=== PATIENT | female | born 1945 | race Caucasian/White ===

== ENCOUNTER → 2016-10-12 | Outpatient (CLI) | payer MEDICARE, OTHER ==
--- NOTE | 2016-10-12 15:24 | CT ---
EXAM DESCRIPTION: Chest CT. CLINICAL HISTORY: Pulmonary nodule followup COMPARISON: January 20, 2016 TECHNIQUE: A noncontrast volumetric CT was acquired and displayed in multiplanar reconstructions. FINDINGS: Mediastinum: Visualized lymph nodes are within normal limits for CT size criteria. No acute aortic abnormality, pericardial effusion, or mediastinal mass. Upper Abdomen: Low density noted within the left lower pole of kidney likely a renal stone. Atherosclerotic disease of the abdominal aorta. Lungs: 2 ground-glass pulmonary nodules seen within the right lower lobe. One is noted on image 27 and the 2nd is noted on image 39. These have remained stable when compared to prior from January of 2016. No new findings within bilateral lungs. Bones: No suspicious bone lesion is seen. IMPRESSION: All findings are unchanged when compared January of 2015. There remain 2 ground-glass nodules seen within the right lower lobe. A final CT of chest in 1 year is suggested to document 2 year stability and a benign etiology of these nodules. Electronically signed by: Nino Summers MD 10/12/2016 15:22
== END ==
LOC: CT 14:41
PROVIDERS: ATTEND Family Medicine
DX: J98.4 Other disorders of lung (principal)

== ENCOUNTER → 2017-02-14 | Outpatient (CLI) | payer MEDICARE, OTHER | END | disposition home or self-care (01) | LOC: GMAB 10:33 | PROVIDERS: ATTEND Family Medicine | DX: I10 Essential (primary) hypertension (principal) ==

== ENCOUNTER → 2017-05-30 | Outpatient (CLI) | payer MEDICARE, OTHER ==
--- NOTE | 2017-05-30 17:00 | CT ---
EXAM DESCRIPTION: Abdomen/Pelvis w/wo Contrast CLINICAL HISTORY: GENERALIZED ABDOMINAL PAIN COMPARISON: January 10, 2016 TECHNIQUE: Pre and postcontrast CT images of the abdomen and pelvis are obtained. This exam was performed according to our departmental dose-optimization program, which includes automated exposure control, adjustment of the mA and/or kV according to patient size and/or use of iterative reconstruction technique . FINDINGS: The visualized lung bases show pulmonary nodules in the right lower lobe measuring 7 mm on image 1 and 7 mm on image 12 stable from previous exam. These are followed on CT of the chest dated October 12, 2016. The liver is enlarged with heterogeneous decreased attenuation consistent with fatty infiltration. Low-attenuation cyst in the dome of the right lobe of the liver x2 is seen. Enlarged esophageal varices at the gastroesophageal junction are seen. Spleen is enlarged measuring 13.9 x 5.2 cm. No enlargement of the main portal vein is seen measuring 12 to 13 mm. Pancreas, adrenal glands, and gallbladder are unremarkable. Moderate atherosclerotic disease is seen. Fluid attenuation cortical cysts are seen and appear stable. The largest in the lower pole left kidney measures 2.5 cm. The urinary bladder fills with contrast on delayed images. Uterus and ovaries are unremarkable. The appendix is not identified. No secondary signs of acute appendicitis are seen. No bowel obstruction is seen. Small fat-containing umbilical hernia seen. Mild scattered diverticuli of the colon are seen without associated inflammatory changes or fluid collections. Moderate to severe disc degenerative changes at the thoracolumbar junction are seen with multilevel facet arthropathy. Mild degenerative changes of the sacroiliac joints are seen. IMPRESSION: Hepatomegaly with diffuse fatty infiltration of the liver is seen. Mild splenomegaly. Enlarged vessels at the gastroesophageal junction are again seen in retrospect and could represent esophageal varices suggesting possible portal venous hypertension. The main portal vein is relatively normal in size. Colon diverticulosis without CT evidence of diverticulitis. Electronically signed by: Bucky Brasher MD 05/30/2017 4:58 PM CDT
== END | disposition home or self-care (01) ==
LOC: RAD 15:24
PROVIDERS: ATTEND Physician Assistant
DX: R10.84 Generalized abdominal pain (principal); R16.0 Hepatomegaly, not elsewhere classified; K76.0 Fatty (change of) liver, not elsewhere classified

== ENCOUNTER → 2018-04-07 | Outpatient (CLI) | payer MEDICARE, OTHER | LOC: GMAE 12:15 | PROVIDERS: ATTEND Family Medicine | DX: I10 Essential (primary) hypertension (principal) ==

== ENCOUNTER → 2018-08-25 | Outpatient (CLI) | payer MEDICARE, OTHER ==
--- NOTE | 2018-08-25 17:25 | MRI ---
EXAM DESCRIPTION: Cervical Spine: MRI. CLINICAL HISTORY: CERVICALGIA COMPARISON: MRI scan cervical spine 12/25/2012. TECHNIQUE: Multiplanar, high-field MRI, multiple sequences, non-contrast Cervical spine. FINDINGS: C2-3: Disc desiccation posterior midline disc bulge bilateral facet arthrosis. Canal is patent with mild bilateral neural foraminal narrowing. C3-4: Disc desiccation and trace anterolisthesis. Anterior disc bulge. Posterior disc bulge abutting the cord with ligament hypertrophy. Right facet arthrosis and uncinate spur resulting in severe right neural foraminal stenosis. Mild left neural foraminal stenosis as well with left facet arthrosis. C4-5: Disc desiccation and trace anterolisthesis. Mild to moderate left neural foraminal narrowing. Right uncinate spur and right paracentral disc bulge with right neural foraminal stenosis. Mild to moderate canal narrowing. Bilateral Facet arthrosis. C5-6: Disc desiccation anterior disc bulge with endplate ridging and mild disc space loss. Trace posterior bulge almost abutting the cord. Bilateral uncinate spurs and mild to moderate neural foraminal stenosis. Mild bilateral facet arthrosis. C6-7: Disc desiccation and disc space loss and anterior bulging which is chronic. Large posterior midline disc protrusion with possible calcified component impressing on the midline cord with mild canal stenosis. Slight progression since the prior study. Flavum ligament hypertrophy also. Mild bilateral facet arthrosis. Moderate bilateral neural foraminal narrowing. C7-T1: Disc desiccation posterior midline bulge with annular fissure and the posterior disc is partially uncovered. No canal stenosis. Mild bilateral foraminal narrowing. Facets are negative. T1-2: Disc desiccation. 1 anterolisthesis and posterior disc bulge abutting the cord. Mild bilateral foraminal narrowing. Small cyst abutting the lateral right facet joint. Hypertrophic changes in the left facet. Borderline bilateral neural foraminal stenosis. Large cystic structure almost 1 cm in diameter partially visualized on the lateral aspect of the left foramen. Partially seen on the prior study.. Spinal alignment decreased lordosis with dorsal cervical kyphosis.. No cord compression or cord edema. Atlantoaxial joint with minimal hypertrophy.. Base of the cerebellar tonsils is above the foramen magnum. Paravertebral soft tissues unremarkable.. Vertebral bodies are not compressed at any level. Normal marrow signal in the remaining vertebral bodies and the posterior elements. IMPRESSION: 1. Large posterior midline disc protrusion at C6-7 with possible calcification. Slight progression since the prior study. Mild canal stenosis. Moderate bilateral neural foraminal narrowing. 2. bilateral uncinate spurs at C5-6 with mild to moderate neural foraminal stenosis. This has progressed on the right since the prior study. 3. Right uncinate spur and right paracentral disc bulge at C4-5 with right neural foraminal stenosis. Moderate left neural foraminal and canal narrowing. Progressive since the prior study. 4. Cystic structure abutting the left lateral T1-T2 neural foramen possibly associated with the left T1 nerve root. Partially seen on the prior study. 5. Hypertrophic changes in the right C3-4 facet with right uncinate spur resulting in severe right foraminal stenosis. Correlate for right C4 radiculopathy. This is progressed since the prior study. Electronically signed by: Raimundo Martinez MD 08/25/2018 5:24 PM [facility]
== END ==
LOC: MRI 13:17
PROVIDERS: ATTEND Family Medicine
DX: M50.221 Other cervical disc displacement at C4-C5 level (principal); M50.223 Other cervical disc displacement at C6-C7 level

== ENCOUNTER 2018-09-14 18:17 | Emergency (ER) | payer MEDICARE, OTHER ==
[2018-09-14 18:31] VITALS: TEMP 99.5
[2018-09-14] MEDS ORDERED: IPRATROPIUM/ALBUTEROL 3 ML VIAL NEB ONE ×2 (18:40→19:52)
--- NOTE | 2018-09-14 19:15 | RAD ---
EXAM DESCRIPTION: Chest,2 Views CLINICAL HISTORY: 73 years Female, cough, sob COMPARISON: None. FINDINGS: No consolidation. No pneumothorax. No significant pleural effusion. Cardiac silhouette appears normal in size. Aortic atherosclerosis is present. Thoracic spine osteophytes are present. IMPRESSION: No acute findings. Electronically signed by: Edwar Doe MD 09/14/2018 7:14 PM [facility]
[2018-09-14] MEDS ORDERED: predniSONE 20 MG TAB PO ONE (19:24)
[2018-09-14] MEDS ORDERED: AMOXICILLIN & POT CLAVULANATE 875 MG TAB PO ONE (19:24)
[2018-09-14] MEDS ORDERED: CETIRIZINE HCL 10 MG TAB PO ONE (19:56)
[2018-09-14 20:20] VITALS: O2SAT 93
--- NOTE | 2018-09-14 20:56 | ED.PDOC ---
History of Present Illness - General Chief Complaint: Respiratory Problem Stated Complaint: shortness of breath Time Seen by Provider: 09/14/18 18:22 Source: patient Exam Limitations: no limitations - History of Present Illness Initial Comments: The patient is a 73-year-old female presenting to the emergency room secondary to a significantly persistent cough. She reports that it started about 2-1/2 weeks ago. She was started on azithromycin along with some cough medications about 4 days ago. She has not improved. She has significant laryngitis. She is coughing to the point that she is becoming dizzy. She sometimes feel short of breath when she is having coughing episodes. She was having at least a start of a panic attack by the time she arrived here today. There is no hypoxia. There is no wheezing. She does have upper airway rhonchi. Her voice is hoarse. She does feel significantly better after breathing treatment that allows her to cough up some sputum. She was already written for a Ventolin inhaler for use. Timing/Duration: unsure Severity: moderate Improving Factors: nothing Worsening Factors: nothing Associated Symptoms: cough, shortness of breath Allergies/Adverse Reactions: Allergies NO KNOWN ALLERGY Allergy (Verified 10/03/13 14:57) Home Medications: Ambulatory Orders Albuterol Inhaler [Ventolin Hfa Inhaler] 1 puff INH DAILY 09/14/18 Benzonatate Perles [Tessalon Perles] 200 mg PO TID PRN 09/14/18 Celecoxib 200 mg PO BID 09/14/18 Chlorpheniramine-Phenylephrine [Norel Ad] 1 tab PO Q4H PRN 09/14/18 Enalapril Maleate 20 mg PO BID 09/14/18 Gabapentin 600 mg PO BID 09/14/18 Golimumab [Simponi Aria] 50 mg IV WKLY 09/14/18 Levofloxacin [Levaquin] 250 mg PO DAILY #7 tablet 09/14/18 Methocarbamol 750 mg PO Q6H PRN 09/14/18 Sertraline HCl 100 mg PO DAILY 09/14/18 Zithromax Z-Corky 250 mg PO DAILY 09/14/18 Review of Systems - Review of Systems Constitutional: States: no symptoms reported EENTM: States: nose congestion, throat pain Respiratory: States: cough, short of breath Cardiology: States: no symptoms reported Gastrointestinal/Abdominal: States: no symptoms reported Genitourinary: States: no symptoms reported Musculoskeletal: States: no symptoms reported Skin: States: no symptoms reported Neurological: States: anxiety Endocrine: States: no symptoms reported All other Systems: No Change from Baseline Past Medical History (General) - Patient Medical History Hx Asthma: Yes Hx Hypertension: Yes Hx Diabetes: No - Vaccination History Hx Influenza Vaccination: Yes - 2017 Hx Pneumococcal Vaccination: Yes Family Medical History - Family History Mother Family History: No Known Physical Exam - Physical Exam General Appearance: Alert, Comfortable, No apparent distress Eye Exam: bilateral normal Ears, Nose, Throat: hearing grossly normal, nasal congestion Neck: full range of motion, supple Respiratory: no respiratory distress, no accessory muscle use, rhonchi Cardiovascular/Chest: normal peripheral pulses, regular rate, rhythm, no edema Peripheral Pulses: radial,right: 2+, radial,left: 2+, dorsalis pedis,right: 2+, dorsalis pedis,left: 2+ Gastrointestinal/Abdominal: non tender, soft Rectal Exam: deferred Back Exam: no CVA tenderness, no vertebral tenderness Extremity: normal range of motion, non-tender, normal inspection, no pedal edema , no calf tenderness, normal capillary refill 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, alert, normal mood/affect - the patient is very anxious upon arrival, oriented x 3 Skin Exam: normal color Comments: Vital Signs - 24 hr 09/14/18 09/14/18 09/14/18 18:20 18:57 19:13 Temperature 99.5 F Pulse Rate 96 H Pulse Rate [ 101 H 97 H left brachial] Respiratory 24 16 Rate Blood Pressure 140/51 146/66 [left brachial] O2 Sat by Pulse 92 L 94 L 95 Oximetry 09/14/18 20:15 Temperature Pulse Rate Pulse Rate [ 108 H left brachial] Respiratory 20 Rate Blood Pressure 140/77 [left brachial] O2 Sat by Pulse 93 L Oximetry Progress - Progress Progress: 09/14/18 20:58 the patient is a 73-year-old female presenting to the emergency room due to symptoms related to laryngitis and bronchitis. The patient has been on azithromycin for a period of time. We are going to change her over to Levaquin. Additionally we are going to add prednisone 20 mg daily for 3-5 days. she already has the prednisone at home. she can continue to use the Ventolin inhaler as needed. I do recommend that she obtain a humidifier at night to help thin secretions so that she does not have to cough so hard. I recommend plain liquid Robitussin as a cough suppressant possibly with honey and lemon added. Keep well hydrated. Keep follow-up with primary care doctor. Of note, the patient did receive a dose of Augmentin here before she remembered that she reportedly had a penicillin allergy. She has been watched for a couple of hours with no reaction. The patient will be switched over to Levaquin just in case. She does understand the ER warnings for any allergic reaction. 09/14/18 21:03 - Results/Orders Results/Orders: Laboratory Tests 09/14/18 09/14/18 09/14/18 18:26 18:26 18:27 WBC 5.9 RBC 4.44 Hgb 13.7 Hct 40.1 MCV 90.2 MCH 30.9 MCHC 34.3 RDW 14.0 Plt Count 184 MPV 6.9 L Absolute Neuts (auto) 3.50 Absolute Lymphs (auto) 1.40 Absolute Monos (auto) 0.90 H Absolute Eos (auto) 0.10 Absolute Basos (auto) 0.00 Neutrophils % 59.4 Lymphocytes % 23.6 Monocytes % 14.9 H Eosinophils % 1.6 Basophils % 0.5 D-Dimer, Quantitative 0.57 H* Sodium 137 Potassium 4.1 Chloride 99 L Carbon Dioxide 28 Anion Gap 14.1 BUN 14 Creatinine 0.66 BUN/Creatinine Ratio 21.2 H Random Glucose 94 Serum Osmolality 274.0 L Calcium 9.7 Total Bilirubin 0.6 AST 22 ALT 19 Alkaline Phosphatase 62 Creatine Kinase 161 H CK-MB (CK-2) 3.2 CK-MB (CK-2) % Not Reportable Troponin I < 0.02 B-Natriuretic Peptide 20.0 Serum Total Protein 7.4 Albumin 3.9 Globulin 3.5 Albumin/Globulin Ratio 1.1 rapid flu is negative. Chest x-ray shows no significant acute process. Departure - Departure Clinical Impression: Laryngitis, Bronchitis Disposition: Discharge to Home or Self Care Condition: Fair Departure Forms: ED Discharge - Pt. Copy, Patient Portal Self Enrollment Instructions: Laryngitis (DC), Acute Bronchitis Diet: regular diet Activity: increase activity as tolerated Referrals: JOSE SANTIAGO MD [Primary Care Provider] - 1-5 Days Prescriptions: Levofloxacin [Levaquin] 250 mg PO DAILY #7 tablet Home Medications: Ambulatory Orders Albuterol Inhaler [Ventolin Hfa Inhaler] 1 puff INH DAILY 09/14/18 Benzonatate Perles [Tessalon Perles] 200 mg PO TID PRN 09/14/18 Celecoxib 200 mg PO BID 09/14/18 Chlorpheniramine-Phenylephrine [Norel Ad] 1 tab PO Q4H PRN 09/14/18 Enalapril Maleate 20 mg PO BID 09/14/18 Gabapentin 600 mg PO BID 09/14/18 Golimumab [Simponi Aria] 50 mg IV WKLY 09/14/18 Levofloxacin [Levaquin] 250 mg PO DAILY #7 tablet 09/14/18 Methocarbamol 750 mg PO Q6H PRN 09/14/18 Sertraline HCl 100 mg PO DAILY 09/14/18 Zithromax Z-Corky 250 mg PO DAILY 09/14/18 Additional Instructions: the patient is a 73-year-old female presenting to the emergency room due to symptoms related to laryngitis and bronchitis. The patient has been on azithromycin for a period of time. We are going to change her over to Levaquin. Additionally we are going to add prednisone 20 mg daily for 3-5 days. she already has the prednisone at home. she can continue to use the Ventolin inhaler as needed. I do recommend that she obtain a humidifier at night to help thin secretions so that she does not have to cough so hard. I recommend plain liquid Robitussin as a cough suppressant possibly with honey and lemon added. Keep well hydrated. Keep follow-up with primary care doctor. ER warnings were given.
[2018-09-14 21:15] VITALS: BP 169/69
== END 2018-09-14 21:22 | disposition home or self-care (01) ==
LOC: ER 18:17
DX: J04.0 Acute laryngitis (principal); J45.909 Unspecified asthma, uncomplicated; R42 Dizziness and giddiness; I10 Essential (primary) hypertension; Z79.899 Other long term (current) drug therapy
CPT/HCPCS: 71046; 80053; 82550; 82553; 83880; 84484; 85025; 85379; 87502; 94640; J7512; J7620

== ENCOUNTER 2018-12-31 12:53 | Inpatient (IN) | payer MEDICARE, OTHER ==
[2018-12-31] MEDS ORDERED: fentaNYL CITRATE INJ 50 MCG/ML AMP IV ONE ×2 (13:16→16:59)
[2018-12-31] MEDS ORDERED: SODIUM CHLORIDE 0.9% (FLUSH) 10 ML SYG IV PRN ×2 (13:16→18:00)
[2018-12-31] MEDS ORDERED: ONDANSETRON INJ 4 MG/2 ML VIAL IV ONE (13:16)
--- NOTE | 2018-12-31 13:25 | ED.PDOC ---
History of Present Illness - General Chief Complaint: Problem Stated Complaint: Pt complains of L flank pain and na urination Time Seen by Provider: 12/31/18 13:12 Source: patient Exam Limitations: no limitations - History of Present Illness Initial Comments: PT PRESENTS WITH COMPLAINT OF PROGRESSIVELY WORSENING L FLANK AND LLQ ABD PAIN SINCE YESTERDAY ASSOCIATED WITH URINARY FREQUENCY AND NAUSEA. PT ALSO REPORTS CHILLS. Timing/Duration: getting worse Severity: moderate Improving Factors: nothing Worsening Factors: nothing Associated Symptoms: fever/chills, loss of appetite, nausea/vomiting Allergies/Adverse Reactions: Allergies Penicillins Adverse Reaction (Verified 12/31/18 13:58) Home Medications: Ambulatory Orders Celecoxib 200 mg PO BID 09/14/18 Enalapril Maleate 20 mg PO BID 09/14/18 Gabapentin 600 mg PO DAILY 09/14/18 Golimumab [Simponi Aria] 50 mg IV WKLY 09/14/18 Sertraline HCl 100 mg PO DAILY 09/14/18 Hydrochlorothiazide 12.5 mg PO DAILY 12/31/18 Tizanidine HCl [Tizanidine Hydrochloride] 2 mg PO DAILY 12/31/18 Review of Systems - Review of Systems Constitutional: States: chills. Denies: fever EENTM: Denies: nose congestion, throat pain Respiratory: Denies: cough, short of breath Cardiology: Denies: chest pain, palpitations Gastrointestinal/Abdominal: States: see HPI, abdominal pain, nausea. Denies: diarrhea, vomiting Genitourinary: States: frequency. Denies: dysuria, hematuria Musculoskeletal: Denies: joint pain, joint swelling Skin: Denies: dryness, lesions Neurological: Denies: headache, numbness Endocrine: States: no symptoms reported Hematologic/Lymphatic: States: no symptoms reported Past Medical History (General) - Patient Medical History Hx Stroke: No Hx Asthma: Yes Hx of COPD: No Hx Hypertension: Yes Hx Diabetes: No Hx Cancer: Yes - skin Surgical History: other - Vaccination History Hx Tetanus, Diphtheria Vaccination: No Hx Influenza Vaccination: Yes Hx Pneumococcal Vaccination: Yes Immunizations Up to Date: Yes - Social History Hx Tobacco Use: No Hx Alcohol Use: No Hx Substance Use: No Hx Substance Use Treatment: No Hx Depression: No - Female History Patient is a Female of Child Bearing Age (10 -59 yrs old): No Patient : No Family Medical History - Family History Mother Family History: No Known Living Status: Unknown Physical Exam - Physical Exam General Appearance: Alert, No apparent distress, Well Developed, Well Groomed, Well Hydrated Eye Exam: bilateral normal Ears, Nose, Throat: hearing grossly normal, normal ENT inspection Respiratory: lungs clear, normal breath sounds, no respiratory distress Cardiovascular/Chest: regular rate, rhythm, no murmur Gastrointestinal/Abdominal: soft, guarding, tenderness - LLQ, SUPRAPUBIC REGION Back Exam: CVA tenderness (L) Neurologic: alert, normal mood/affect, oriented x 3 Skin Exam: normal color, warm/dry Progress - Progress Progress: 12/31/18 15:50 PT RESTING COMFORTABLY, LABS AND DIAGNOSTICS DISCUSSED. WILL PLAN TO ADMIT FOR IV ABX. - Results/Orders Results/Orders: Laboratory Tests 12/31/18 12/31/18 12/31/18 13:19 13:23 13:23 WBC 13.6 H RBC 4.45 Hgb 13.9 Hct 40.5 MCV 90.9 MCH 31.2 H MCHC 34.3 RDW 14.0 Plt Count 207 MPV 7.3 L Absolute Neuts (auto) 8.90 H Absolute Lymphs (auto) 3.10 Absolute Monos (auto) 1.30 H Absolute Eos (auto) 0.20 Absolute Basos (auto) 0.10 Neutrophils % 65.6 Lymphocytes % 22.8 Monocytes % 9.8 H Eosinophils % 1.3 Basophils % 0.5 Sodium 138 Potassium 3.7 Chloride 103 Carbon Dioxide 23 Anion Gap 15.7 BUN 26 H Creatinine 0.57 L BUN/Creatinine Ratio 45.6 H Random Glucose 101 Serum Osmolality 280.6 Calcium 9.7 Total Bilirubin 0.8 Direct Bilirubin 0.1 Indirect Bilirubin 0.7 AST 17 ALT 14 Alkaline Phosphatase 68 Serum Total Protein 7.8 Albumin 4.1 Urine Color Yellow Urine Appearance Clear Urine pH 5.5 Ur Specific [place] 1.025 Urine Protein Negative Urine Glucose (UA) Negative Urine Ketones Negative Urine Blood Negative Urine Nitrite Negative Urine Bilirubin Negative Urine Urobilinogen 0.2 Ur Leukocyte Esterase Negative Urine RBC 0 Urine WBC 0 Ur Epithelial Cells 0 Urine Bacteria 0 Departure - Departure Clinical Impression: Acute diverticulitis Time of Disposition: 15:51 Disposition: Admit Patient Condition: Fair Departure Forms: ED Discharge - Pt. Copy, Patient Portal Self Enrollment Referrals: JOSE SANTIAGO MD [Primary Care Provider] - 1-2 Weeks Home Medications: Ambulatory Orders Celecoxib 200 mg PO BID 09/14/18 Enalapril Maleate 20 mg PO BID 09/14/18 Gabapentin 600 mg PO DAILY 09/14/18 Golimumab [Simponi Aria] 50 mg IV WKLY 09/14/18 Sertraline HCl 100 mg PO DAILY 09/14/18 Hydrochlorothiazide 12.5 mg PO DAILY 12/31/18 Tizanidine HCl [Tizanidine Hydrochloride] 2 mg PO DAILY 12/31/18 Decision To Admit - Decistion To Admit Decision to Admit Reason: Admit from ER Decision to Admit Date: 12/31/18 Decision to Admit Time: 15:50 - CASE DISCUSSED WITH DREW CHRIS NP WHO AGREES TO ADMIT
[2018-12-31] MEDS ORDERED: SODIUM CHLORIDE 0.9% 1000ML 1,000 ML IVS ONE (14:08)
--- NOTE | 2018-12-31 15:03 | CT ---
EXAM DESCRIPTION: Abdomen/Pelvis w/Contrast CLINICAL HISTORY: 73 years Female, LLQ ABD TENDERNESS COMPARISON: CT abdomen and pelvis dated 05/30/2017. TECHNIQUE: Contiguous 3 mm axial images were obtained from the lung bases to the level of the proximal femora after the administration of intravenous and oral contrast. Sagittal and coronal reconstructions were reviewed. FINDINGS: THORAX: A calcified granuloma is identified in the right lower lobe. The imaged lower thorax otherwise appears normal. LIVER: The liver demonstrates normal size and density with no intrahepatic biliary ductal dilatation or focal masses. 9 mm hypodense lesion is noted in hepatic segment 7. GALLBLADDER: Not well distended limiting detailed evaluation. PANCREAS: Appears normal with no cystic or solid lesions. SPLEEN: Normal ADRENAL GLANDS: Normal with no nodules or masses. KIDNEYS: Both kidneys enhance symmetrically with no hydronephrosis or nephrolithiasis or perinephric fluid collections. Few simple cysts are identified in the inferior pole of the left kidney. No focal masses are identified. The visualized ureters appear grossly unremarkable. STOMACH: Small hiatal hernia is identified. The stomach is not well-distended limiting detailed evaluation. SMALL BOWEL: The small bowel loops demonstrate variable degrees of distention with no abnormal dilatation or other signs to suggest bowel obstruction. LARGE BOWEL: Inflammatory stranding is identified surrounding the sigmoid portion, most likely consistent with acute hepatitis. Trace free fluid is noted in the pelvis. Mild constipation is identified. No free intraperitoneal air. RETROPERITONEUM: The abdominal aorta is nonaneurysmal with mild to moderate atherosclerosis. The inferior vena cava is normal in size and caliber. No abnormally enlarged retroperitoneal lymph nodes are identified. URINARY BLADDER:The urinary bladder is well-distended with no gross abnormality. The uterus and adnexa appear normal. ADDITIONAL FINDINGS: None. BONES: Mild degenerative changes are identified in the visualized bones.No evidence of osteophytic or osteoblastic lesions. IMPRESSION: 1. Acute diverticulitis of the sigmoid colon with no perforation or abscess formation. 2. Small hiatal hernia. This exam was performed according to our departmental dose-optimization program, which includes automated exposure control, adjustment of the mA and/or kV according to patient size and/or use of iterative reconstruction technique. Electronically signed by: Aicha Cristina MD 12/31/2018 3:00 PM CDT
[2018-12-31] MEDS ORDERED: metroNIDAZOLE IV PREMIX 500MG 500 MG in PREMIX BAG 1 BAG IVPB ONE (15:24)
[2018-12-31] MEDS ORDERED: levoFLOXacin 750MG IV 750 MG in PREMIX BAG 1 BAG IVPB ONE (15:25)
[2018-12-31] MEDS ORDERED: metroNIDAZOLE IV PREMIX 500MG 100 ML IVPB ONE ×2 (15:30→20:18)
--- NOTE | 2018-12-31 16:20 | HP ---
SUPERVISING PHYSICIAN: Nick Mg MD CHIEF COMPLAINT: Left sided abdominal pain. HISTORY OF PRESENT ILLNESS: This is a 73-year-old female patient who has had left sided flank pain as well as left sided abdominal pain since Saturday. It progressively worsened. She also had increased urinary frequency with nausea, but no vomiting or diarrhea. She has no reports of any fever, but she has had some chills. She does have a history of kidney stones as well as diverticulitis. In the Emergency Room, her vital signs were stable with a temperature of 98, heart rate 88, blood pressure 124/82, respiratory rate 16, O2 saturation 95% on room air. Her labs showed an elevated white count of 13,600 with hemoglobin 13.9 and hematocrit 40.5. Electrolytes were basically within normal limits. BUN 26, creatinine 0.57. Urine was unremarkable. CT of the abdomen and pelvis shows 1) Acute diverticulitis of the sigmoid colon with no perforation or abscess formation. 2) Small hiatal hernia. She was given Levaquin and Flagyl in the Emergency Room as well as some fentanyl for pain and Protonix. She was also given a small amount of IV fluids. I was called for hospital admission. PAST MEDICAL HISTORY: 1. Rheumatoid arthritis. 2. Hypertension. 3. Osteoarthritis. 4. Mild asthma. 5. Hyperlipidemia. 6. Nephrolithiasis. PAST SURGICAL HISTORY: 1. Removal of one ovary. 2. Right shoulder surgery. 3. Bilateral foot surgery. ALLERGIES: PENICILLIN, REMICADE. FAMILY HISTORY: Positive for congestive heart failure, myocardial infarction and breast cancer. SOCIAL HISTORY: She is . She works part-time at [employer]. She denies tobacco, ETOH or illicit drug use. REVIEW OF SYSTEMS: GENERAL: Positive for chills. Negative for fever or weight changes. HEENT: Negative for sinus symptoms, ear pain, vision changes or sore throat. RESPIRATORY: Negative for wheezing, coughing or shortness of breath. CARDIAC: Negative for chest pain, palpitations or tachycardia. GASTROINTESTINAL: As per history of present illness, but positive for left sided abdominal pain and nausea. Negative for diarrhea or vomiting. GENITOURINARY: Positive for polyuria. Negative for hematuria, dysuria. MUSCULOSKELETAL: Positive for joint pain related to her rheumatoid arthritis, but otherwise no complaints. SKIN: Negative for lesions or rashes. NEUROLOGIC: Negative for headache, dizziness or seizures. PHYSICAL EXAMINATION: VITAL SIGNS: Temperature 97.2. Heart rate 77. Blood pressure 148/79. Respiratory rate 18. O2 saturation 95% on room air. GENERAL: This is a 73-year-old female patient who is lying in her hospital bed. She is in no acute distress. HEENT: Normocephalic, atraumatic. Pupils are equal and reactive. Oropharynx is clear. NECK: Supple without mass. RESPIRATORY: Essentially clear to auscultation bilaterally. CHEST: There is equal rise and fall of the chest with inspiration and expiration. CARDIOVASCULAR: Regular rate and rhythm. GASTROINTESTINAL: Abdomen is soft, nondistended. She does have some moderate pain to the left upper and lower quadrant as well as some mild left flank pain. There is no rebound tenderness or guarding. EXTREMITIES: No cyanosis, clubbing or edema. NEUROLOGIC: Awake, alert and oriented times three. Cranial nerves II-XII are grossly intact. LABORATORY: Labs and films are as per history of present illness. IMPRESSION: 1. Diverticulitis of the sigmoid colon. 2. Left abdominal pain with nausea and leukocytosis of 13,600. 3. History of kidney stones with a negative urinalysis. 4. History of rheumatoid arthritis. 5. History of hypertension, stable on medications. PLAN: We will admit the patient to the hospital. I have continued her Levaquin and Flagyl as she received in the Emergency Room. I will speak with Dr. Dan, general surgeon, about the patient's plan of care. I will put her on bowel rest as well as some fluids and some pain medication. She will also be on a proton pump inhibitor for ulcer prophylaxis and Lovenox for DVT prophylaxis. Hopefully we can advance her diet to clear liquids tomorrow and restart her home medications. Hopefully she can be discharged in 2 to 3 days with close followup with her GI doctor. #[id number] [facility]
[2018-12-31] MEDS ORDERED: IV SET AND CAP CHANGE INJ INJ SCH (18:00)
[2018-12-31] MEDS ORDERED: ONDANSETRON INJ 4 MG/2 ML VIAL IV PRN (18:00)
[2018-12-31] MEDS: ENOXAPARIN SODIUM 40 MG/0.4 ML SYG SUBCU SCH (21:44)
[2018-12-31] MEDS: fentaNYL CITRATE INJ 50 MCG/ML AMP IV PRN (22:01)
[2018-12-31] MEDS: metroNIDAZOLE IV PREMIX 500MG 500 MG in PREMIX BAG 1 BAG IVPB SCH (23:09)
[2019-01-01] MEDS: PANTOPRAZOLE SODIUM IV 40 MG VIAL IV SCH (06:06)
--- NOTE | 2019-01-01 07:19 | RAD ---
EXAM: Two view(s) of the abdomen. INDICATION: Diverticulitis. COMPARISON: CT dated 12/31/2018. FINDINGS: Intraperitoneal free air: Negative. Bowel: No dilated loops of small bowel or air-fluid levels. Bones: Unremarkable. Other: None. IMPRESSION: 1. Nonspecific, nonobstructed bowel gas pattern. 2. The sigmoid diverticulitis is better appreciated on the prior CT scan. Electronically signed by: Rafa Knight MD 01/01/2019 7:16 AM CDT Workstation: [id number]
[2019-01-01] MEDS ORDERED: metroNIDAZOLE IV PREMIX 500MG 100 ML IVPB ONE ×3 (07:44→19:12)
[2019-01-01] MEDS: metroNIDAZOLE IV PREMIX 500MG 500 MG in PREMIX BAG 1 BAG IVPB SCH ×2 (08:07→15:36)
[2019-01-01] MEDS: fentaNYL CITRATE INJ 50 MCG/ML AMP IV PRN ×2 (10:10→15:36)
[2019-01-01] MEDS: MAGNESIUM HYDROXIDE 30 ML UD PO SCH ×2 (12:10→15:35)
--- NOTE | 2019-01-01 13:35 | PN ---
SUPERVISING PHYSICIAN: Nick Mg MD DATE: 01/01/19 SUBJECTIVE: The patient has complaints of hunger. She has had no nausea, vomiting, diarrhea or constipation. Since admission, her abdominal pain is still on the left side, but much improved. We discussed that she is somewhat constipated and we needed to do a clean-out and then I would advance her diet. OBJECTIVE: VITAL SIGNS: Temperature 98. Heart rate 74. Blood pressure 110/59. Respiratory rate 20. O2 saturation 96% on room air. RESPIRATORY: Essentially clear to auscultation bilaterally. CARDIAC: Regular rate and rhythm. GASTROINTESTINAL: Abdomen is soft, nondistended. She is tender to the left upper and left lower quadrant. There is no left CVA tenderness. Bowel sounds are positive. NEUROLOGIC: Awake, alert and oriented times three. LABORATORY: WBCs have normalized to 7.3 with hemoglobin 12.8, hematocrit 37.5. CMP is basically within normal limits. Abdominal x-ray shows nonspecific, nonobstructive bowel gas pattern and sigmoid diverticulitis is better appreciated on the CT exam. All other labs and films have been reviewed via the EMR. ASSESSMENT: 1. Diverticulitis of the sigmoid colon. 2. Left abdominal pain with nausea and leukocytosis of 13,600 on admission. 3. Constipation. 4. History of kidney stones with a negative urinalysis. 5. History of rheumatoid arthritis. 6. History of hypertension, stable on medications. PLAN: We will continue present supportive care. I have consulted Dr. Dan. I have advanced her diet to clear liquid. I have also ordered two doses of Milk of Magnesia. I restarted her home medications. We will continue to monitor the patient closely and follow as needed. [facility][id number] [facility]
[2019-01-01] MEDS ORDERED: SERTRALINE HCL 50 MG TAB ONE (13:59)
[2019-01-01] MEDS ORDERED: ENALAPRIL MALEATE 5 MG TAB ONE (13:59)
[2019-01-01] MEDS: ENALAPRIL MALEATE 5 MG TAB PO SCH ×2 (14:05→21:32)
[2019-01-01] MEDS: SERTRALINE HCL 50 MG TAB PO SCH (14:06)
--- NOTE | 2019-01-01 14:14 | CONS ---
DATE OF CONSULTATION: 01/01/19 HISTORY OF PRESENT ILLNESS: The patient is a 73-year-old female who was admitted yesterday through the Emergency Room. She had abdominal pain and flank pain since Saturday. It worsened and she presented to the Emergency Room. She also had nausea, but no vomiting or change in her bowel habits. She denied fever, but had had chills. She has a history of diverticulitis once before and had a post treatment colonoscopy which is said to have been unremarkable. This was probably within the last two years. She does have a history also of renal calculi. She was started on Levaquin and Flagyl and made NPO. PAST MEDICAL HISTORY: 1. Rheumatoid arthritis. 2. Hypertension. 3. Osteoarthritis. 4. Asthma. 5. Hyperlipidemia. PAST SURGICAL HISTORY: 1. Oophorectomy. 2. Right shoulder surgery. 3. Bilateral foot surgery. ALLERGIES: PENICILLIN AND REMICADE. FAMILY HISTORY: Positive for heart failure, breast cancer. SOCIAL HISTORY: She is . She works part-time at [employer]. She denies tobacco or alcohol use. REVIEW OF SYSTEMS: As noted, no history of sinus difficulties. She denies shortness of breath, cough or chest pain. She does complain of polyuria, but no hematuria or dysuria. PHYSICAL EXAMINATION: VITAL SIGNS: The patient is currently afebrile, normotensive. HEENT: Sclerae nonicteric. Mucous membranes moist. NECK: Without adenopathy. BACK: Without CVA tenderness. CHEST: Equal breath sounds bilaterally. HEART: Regular rate and rhythm. ABDOMEN: Soft. Minimally distended. There is tenderness on the left lower quadrant without mass or guarding. PELVIC/RECTAL: Deferred. EXTREMITIES: Without cyanosis, clubbing or edema. LABORATORY: White count 13,000 yesterday in the Emergency Room. It is 7,000 today. Differential has gone from 65 to 51 neutrophils. Hemoglobin from 13 to 12.8. Chemistries reveal creatinine 0.75, potassium 4.2. Liver functions within normal limits. CT scan revealed inflammatory process involving the sigmoid colon with no free fluid or free air identified. No abscess cavity identified. There was a large amount of stool in the whole colon. ASSESSMENT: 1. Acute diverticulitis, second episode. RECOMMENDATION: Begin the patient on a clear liquid diet and gentle catharsis from above. We will follow the patient with you. She can likely be changed early on to oral antibiotics, but will need likely an ongoing bowel regimen. #[id number] [facility]
[2019-01-01] MEDS ORDERED: levoFLOXacin 500MG IV 100 ML IVPB ONE (16:41)
[2019-01-01] MEDS: levoFLOXacin 500MG IV 500 MG in PREMIX BAG 1 BAG IVPB SCH (16:48)
[2019-01-01] MEDS: CELECOXIB 100 MG CAP PO SCH (21:32)
[2019-01-01] MEDS: ENOXAPARIN SODIUM 40 MG/0.4 ML SYG SUBCU SCH (21:32)
[2019-01-01] MEDS: tiZANidine 4 MG TAB PO SCH (21:33)
[2019-01-01] MEDS: GABAPENTIN 300 MG CAP PO SCH (21:36)
[2019-01-02] MEDS: metroNIDAZOLE IV PREMIX 500MG 500 MG in PREMIX BAG 1 BAG IVPB SCH ×3 (00:20→16:10)
[2019-01-02] MEDS: PANTOPRAZOLE SODIUM IV 40 MG VIAL IV SCH (06:11)
[2019-01-02] MEDS ORDERED: metroNIDAZOLE IV PREMIX 500MG 100 ML IVPB ONE ×3 (08:10→20:13)
[2019-01-02] MEDS: ENALAPRIL MALEATE 5 MG TAB PO SCH ×2 (08:43→21:08)
[2019-01-02] MEDS: CELECOXIB 100 MG CAP PO SCH ×2 (08:43→21:07)
[2019-01-02] MEDS: SERTRALINE HCL 50 MG TAB PO SCH (08:44)
[2019-01-02] MEDS: hydroCHLOROthiazide 12.5 MG CAP PO SCH (08:45)
[2019-01-02] MEDS ORDERED: MAGNESIUM HYDROXIDE 30 ML UD PO ONE (11:59)
[2019-01-02] MEDS: POLYETHYLENE GLYCOL 3350 17 GM PCKT PO SCH (12:30)
[2019-01-02] MEDS ORDERED: levoFLOXacin 500MG IV 100 ML IVPB ONE (18:31)
[2019-01-02] MEDS: levoFLOXacin 500MG IV 500 MG in PREMIX BAG 1 BAG IVPB SCH (18:47)
[2019-01-02] MEDS: ENOXAPARIN SODIUM 40 MG/0.4 ML SYG SUBCU SCH (21:07)
[2019-01-02] MEDS: GABAPENTIN 300 MG CAP PO SCH (21:08)
[2019-01-02] MEDS: tiZANidine 4 MG TAB PO SCH (21:08)
--- NOTE | 2019-01-02 21:09 | PN ---
DATE: 01/02/19 SUPERVISING PHYSICIAN: Jacques Armstrong M.D. SUBJECTIVE: The patient continues to have abdominal pain on the left side and down into the suprapubic area. She is actually tolerating advancement of her diet. She has been afebrile. No other complaints. OBJECTIVE: VITAL SIGNS: temperature 97.6, pulse 69, blood pressure 138/79, respirations 20, satting 94% on room air. CHEST: Clear to auscultation bilaterally. HEART: Regular rate and rhythm. ABDOMEN: Soft, tender to palpation on the left lower quadrant and across to just below the umbilicus. No rebound tenderness. No point tenderness. Bowel sounds are present. NEUROLOGIC: He is alert and oriented times three. LABORATORY: CBC remains within normal limits at 6,600. Hemoglobin and hematocrit are stable at 12.8 and 37.7 respectively with differential now showing to be within normal limits. Chemistries show normal electrolytes, showing to be stable. BUN and creatinine are stable at 16 and 0.79 respectively. Liver functions showing to be within normal limits. RADIOLOGY: No additional radiographic studies. ASSESSMENT: 1. Diverticulitis of the sigmoid colon. Patient showing good clinical response to treatment and starting to tolerate diet. 2. Constipation responding to MiraLAX and Milk of Magnesia. 3. History of kidney stones with a negative urinalysis. 4. History of rheumatoid arthritis. 5. History of hypertension, stable on medications. PLAN: I have advanced her diet to low residual diet. After discussing the case with Dr. Dan, we are going to give her a dose of Milk of Magnesia and start her on some MiraLAX. Should she tolerate both the diet and have a good bowel movement through the night, the plan would be to discharge her home on continued antibiotic coverage with Levaquin and Flagyl. Until then will continue to monitor and treat as needed. [facility][id number] [facility]
[2019-01-03] MEDS: metroNIDAZOLE IV PREMIX 500MG 500 MG in PREMIX BAG 1 BAG IVPB SCH ×2 (00:10→10:00)
[2019-01-03] MEDS: PANTOPRAZOLE SODIUM IV 40 MG VIAL IV SCH (06:06)
[2019-01-03 06:48] VITALS: O2SAT 95
[2019-01-03] MEDS ORDERED: metroNIDAZOLE IV PREMIX 500MG 100 ML IVPB ONE (09:14)
[2019-01-03] MEDS: CELECOXIB 100 MG CAP PO SCH (09:59)
[2019-01-03] MEDS: SERTRALINE HCL 50 MG TAB PO SCH (09:59)
[2019-01-03] MEDS: ENALAPRIL MALEATE 5 MG TAB PO SCH (10:00)
[2019-01-03] MEDS: hydroCHLOROthiazide 12.5 MG CAP PO SCH (10:00)
[2019-01-03] MEDS: POLYETHYLENE GLYCOL 3350 17 GM PCKT PO SCH (10:00)
[2019-01-03 10:16] VITALS: BP 118/68; TEMP 98.6
--- NOTE | 2019-01-19 09:04 | DS ---
SUPERVISING PHYSICIAN: Roe Mg MD ADMISSION DIAGNOSES: 1. Diverticulitis of the sigmoid colon. 2. Left abdominal pain with nausea and leukocytosis of 13,600. 3. History of kidney stones with a negative urinalysis. 4. History of rheumatoid arthritis. 5. History of hypertension, stable on medications. DISCHARGE DIAGNOSES: 1. Acute diverticulitis of the sigmoid colon. Patient showing good clinical response to treatment and tolerating diet. 2. Constipation responding to MiraLAX and Milk of Magnesia. 3. History of kidney stones with a negative urinalysis. 4. History of rheumatoid arthritis. 5. History of hypertension, stable on medications. REASON FOR HOSPITALIZATION: This is a 73-year-old female patient who has had left sided flank pain as well as left sided abdominal pain since Saturday. It progressively worsened. She also had increased urinary frequency with nausea, but no vomiting or diarrhea. She has no reports of any fever, but she has had some chills. She does have a history of kidney stones as well as diverticulitis. In the Emergency Room, her vital signs were stable with a temperature of 98, heart rate 88, blood pressure 124/82, respiratory rate 16, O2 saturation 95% on room air. Her labs showed an elevated white count of 13,600 with hemoglobin 13.9 and hematocrit 40.5. Electrolytes were basically within normal limits. BUN 26, creatinine 0.57. Urine was unremarkable. CT of the abdomen and pelvis shows 1) Acute diverticulitis of the sigmoid colon with no perforation or abscess formation. 2) Small hiatal hernia. She was given Levaquin and Flagyl in the Emergency Room as well as some fentanyl for pain and Protonix. She was also given a small amount of IV fluids. I was called for hospital admission.. CONSULTATION: Devin Dan MD HOSPITAL COURSE: Ms. Pelaez was admitted on 12/31/18 with colon diverticulitis and started on treatment with Levaquin and Flagyl. Dr. Dan saw the patient in consultation. She was on bowel rest, had been started on fluids and given management. She was slowly able to tolerate advancement of her diet and showing good bowel movements, no longer having any significant amount of pain and was showing no fever. She was felt to be clinically stable enough for discharge for outpatient management. PLAN: Ms. Pelaez was discharged on 01/03/19 with instructions to followup with Dr. Mg the week after discharge. Diet was instructed to be low residual diet. She was taking the medications as instructed and resume her home medications as directed. She was given instructions to return to the hospital should there be any worsening or concerning symptoms. DISCHARGE MEDICATIONS: 1. Levaquin 500 mg daily, #14. 2. Flagyl 500 mg every 8 hours, #42. DISPOSITION: Patient discharged to care of family. CONDITION ON DISCHARGE: Stable and improving. #[id number] [facility]
== END 2019-01-03 11:10 | disposition home or self-care (01) | DRG 392 ==
LOC: ER 12:53 → MS 16:16
PROVIDERS: ADMIT Nurse Practitioner Acute Care; ATTEND Nurse Practitioner Family
PROC: BW211ZZ Computerized Tomography (CT Scan) of Abdomen and Pelvis using Low Osmolar Contrast (ICD-10-PCS; principal; 2018-12-31)
DX: K57.32 Diverticulitis of large intestine without perforation or abscess without bleeding (principal); K59.00 Constipation, unspecified; M06.9 Rheumatoid arthritis, unspecified; I10 Essential (primary) hypertension; M19.90 Unspecified osteoarthritis, unspecified site; J45.909 Unspecified asthma, uncomplicated; E78.5 Hyperlipidemia, unspecified; K44.9 Diaphragmatic hernia without obstruction or gangrene; Z88.0 Allergy status to penicillin; Z88.3 Allergy status to other anti-infective agents; Z87.442 Personal history of urinary calculi; Z79.899 Other long term (current) drug therapy

== ENCOUNTER 2019-07-08 12:17 | Observation (INO) | payer MEDICARE, OTHER ==
--- NOTE | 2019-07-08 15:48 | HP ---
SUPERVISING PHYSICIAN: Roe Mg M.D. CHIEF COMPLAINT: Epigastric abdominal pain. HISTORY OF PRESENT ILLNESS: This is a 74 year-old female patient who has a history of rheumatoid arthritis. She felt like she was actually having a flare- up of her rheumatoid arthritis over the last few weeks and went to see her applied statistician yesterday, Dr. Bree Scott in [place]. She came home yesterday. She has been quite busy over the last few weeks and woke up this morning with left upper abdominal pain that radiated to her epigastric area. She was also nauseated but no diarrhea at that time. She did have an occasional dry heave as she had been NPO for some routine blood work at her primary care physician's office, Dr. Siva Mg. She got her blood drawn this morning at his office and she went back for followup to the lab. At that time she was feeling very nauseated and weak. She was also vomiting. Then she began to have some diarrhea. She also felt dizzy and light-headed. In Dr. Mg's office, her WBCs were 12,000. The remainder of her lab work was fairly unremarkable other than her BUN was elevated. She has a history of diverticulitis and was actually in the hospital in December of this year. Because of her weakness as well as her history of rheumatoid arthritis as well as her dehydration. Dr. Mg felt it would be prudent for the patient to be admitted to the hospital for some fluids as well as some antibiotic therapy and a further workup. One she was admitted to the hospital her vital signs showed temperature 98.4 with a heart rate of 84, blood pressure 116/72, respiratory rate 12, O2 sat 97% on room air. Blood cultures were drawn. Additional lab studies were done with amylase of 59 and lipase 30. TSH was 3.83. CT of the abdomen was also done and it showed colon diverticulosis without CT evidence of acute diverticulitis, stable simple renal cortical or peripelvic cysts bilaterally, probably cholelithiasis. Consider further evaluation with a right upper quadrant ultrasound. She was given fluids as well as started on Flagyl and Levaquin IV. She was placed in observation in the hospital. PAST MEDICAL HISTORY: 1. Rheumatoid arthritis. 2. Hypertension. 3. Osteoarthritis. 4. Mild asthma. 5. Nephrolithiasis. PAST SURGICAL HISTORY: 1. Removal of one ovary. 2. Right shoulder surgery. 3. Bilateral foot surgery. ALLERGIES: PENICILLIN, REMICADE. FAMILY HISTORY: Positive for congestive heart failure, myocardial infarction and breast cancer. SOCIAL HISTORY: She is . She works part-time at [employer]. She denies tobacco, ETOH or illicit drug use. REVIEW OF SYSTEMS: Negative for chills, fever or weight changes. HEENT: Negative for sinus symptoms, ear pain, vision changes or sore throat. RESPIRATORY: Negative for coughing, wheezing or shortness of breath. CARDIAC: Negative for chest pains, palpitations or tachycardia. GASTROINTESTINAL: As per History of Present Illness, although in the hospital she did say that the pain has radiated to her right upper quadrant. GENITOURINARY: Positive for polyuria. Negative for hematuria or dysuria. MUSCULOSKELETAL: Positive for joint pain associated with her rheumatoid arthritis, but otherwise no complaints. SKIN: Negative for lesions or rashes. NEUROLOGIC: Positive for dizziness, weakness and light-headedness. Negative for seizures or headaches. PHYSICAL EXAMINATION: VITAL SIGNS: Temperature 98.4, heart rate 84, blood pressure 116/72, respiratory rate 12, O2 sat 97%. GENERAL: This is a 74 year-old female patient lying in her hospital bed. She looks to be mildly ill. HEENT: Normocephalic and atraumatic. Pupils are equal and reactive. Oropharynx is clear. Oral mucous membranes are quite dry. NECK: Supple without mass. RESPIRATORY: Essentially clear to auscultation bilaterally. CHEST: There is equal rise and fall of the chest with inspiration and expiration. CARDIOVASCULAR: Regular rate and rhythm. GASTROINTESTINAL: Abdomen is soft, nondistended. She has some moderate pain to the right upper epigastric and left upper quadrant. There is no flank pain. There is no rebound tenderness or guarding. EXTREMITIES: No clubbing, cyanosis or edema. NEUROLOGIC: She is awake, alert and oriented times three. Cranial nerves II- XII are grossly intact. SKIN: Warm and dry although her skin turgor is somewhat poor. LABORATORY: As per the History of Present Illness. ASSESSMENT: 1. Epigastric abdominal pain that radiates somewhat to the right and left upper quadrants with nausea, vomiting and dehydration. She had mild leukocytosis. 2. Diverticulosis with a history of diverticulitis treated in hospital in December of 2018. 3. Concerns for cholelithiasis per CT scan. 4. Rheumatoid arthritis currently on medications. 5. Hypertension on medications, stable. PLAN: The patient has been placed in observation. She will be given bowel rest as well as fluids. I have ordered a complete abdominal sonogram tomorrow as per recommendations of the CT scan. I will recheck her labs in the morning. Her Flagyl and Levaquin will be continued. Her home medications will be restarted. Will order some antiemetics as well as a PPI for ulcer prophylaxis and Lovenox for DVT prophylaxis. If needed tomorrow, will consult one of our general surgeons for followup. Will continue to monitor closely and follow as needed. [facility][id number] [facility]
[2019-07-08] MEDS ORDERED: ONDANSETRON INJ 4 MG/2 ML VIAL IV PRN (15:54)
[2019-07-08] MEDS ORDERED: ACETAMINOPHEN SUPPOSITORY 650 MG PR PRN (15:54)
[2019-07-08] MEDS ORDERED: SODIUM CHLORIDE 0.9% (FLUSH) 10 ML SYG IV PRN (15:54)
[2019-07-08] MEDS ORDERED: SODIUM CHLORIDE 0.9% 1000ML 1,000 ML IVS ONE (15:57)
[2019-07-08] MEDS ORDERED: IV SET AND CAP CHANGE INJ INJ SCH (16:00)
[2019-07-08] MEDS ORDERED: levoFLOXacin 500MG IV 500 MG in PREMIX BAG 1 BAG IVPB SCH (16:30)
[2019-07-08] MEDS ORDERED: levoFLOXacin 500MG IV 100 ML IVPB ONE (16:31)
--- NOTE | 2019-07-08 16:37 | CT ---
EXAM DESCRIPTION: Abdoment/Pelvis w/o Contrast CLINICAL HISTORY: ?diverticulitis abdominal pain COMPARISON: December 31, 2018 TECHNIQUE: Noncontrast transaxial CT images of the abdomen and pelvis are obtained. This exam was performed according to our departmental dose-optimization program, which includes automated exposure control, adjustment of the mA and/or kV according to patient size and/or use of iterative reconstruction technique . FINDINGS: Visualized lung bases show no acute findings. Stable hepatic cyst. Noncontrast appearance of the liver, spleen, pancreas, adrenal glands are unremarkable. Focal mild hyperdensity in the gallbladder measuring maximum 4 mm. No gallbladder wall thickening. No biliary tract obstruction. Moderate atherosclerotic disease. Simple bilateral renal cortical and parapelvic cysts are stable. No nephrolithiasis, ureteral calcification, or ureteral obstruction. Urinary bladder is poorly distended and unremarkable. Uterus is surgically absent or hypoplastic. Ovaries are not identified. The appendix is not identified. Stomach is contracted. No mass lesion or inflammatory changes. No small bowel obstruction or bowel wall thickening. [id number] scattered diverticuli of the mostly descending to sigmoid colon are seen without associated inflammatory changes or fluid collections. No pathologically enlarged abdominal or retroperitoneal lymphadenopathy. Small fat-containing umbilical hernia. Small fat-containing left inguinal hernia. Moderate to severe spondylitic changes of the spine. IMPRESSION: Colon diverticulosis without CT evidence of acute diverticulitis. Stable simple renal cortical or parapelvic cysts bilaterally. Probable cholelithiasis. Consider further evaluation with right upper quadrant ultrasound if clinically indicated. Electronically signed by: Bucky Brasher MD 07/08/2019 4:35 PM CDT
[2019-07-08] MEDS ORDERED: metroNIDAZOLE IV PREMIX 500MG 100 ML IVPB ONE ×2 (17:47→19:04)
[2019-07-08] MEDS: metroNIDAZOLE IV PREMIX 500MG 500 MG in PREMIX BAG 1 BAG IVPB SCH (18:19)
[2019-07-08] MEDS ORDERED: KCL 20MEQ/D5 1/2NS 1,000 ML IVS PRN (18:52)
[2019-07-08] MEDS: fentaNYL CITRATE INJ 50 MCG/ML AMP IV PRN (19:08)
[2019-07-08] MEDS ORDERED: ENOXAPARIN SODIUM 40 MG/0.4 ML SYG SUBCU SCH (21:00)
[2019-07-08] MEDS: SODIUM CHLORIDE 0.9% (FLUSH) 10 ML SYG IV SCH (21:07)
[2019-07-09] MEDS: metroNIDAZOLE IV PREMIX 500MG 500 MG in PREMIX BAG 1 BAG IVPB SCH ×2 (01:52→09:05)
[2019-07-09] MEDS: fentaNYL CITRATE INJ 50 MCG/ML AMP IV PRN (02:30)
[2019-07-09] MEDS ORDERED: PANTOPRAZOLE SODIUM IV 40 MG VIAL IV SCH (06:30)
[2019-07-09] MEDS ORDERED: metroNIDAZOLE IV PREMIX 500MG 100 ML IVPB ONE (06:50)
[2019-07-09] MEDS: SODIUM CHLORIDE 0.9% (FLUSH) 10 ML SYG IV SCH (09:06)
[2019-07-09 09:21] VITALS: BP 108/68; TEMP 97.1; O2SAT 94
--- NOTE | 2019-07-09 09:38 | US ---
Procedure: US ABDOMEN Exam Date: 07/09/2019 Ordering Provider: Tracie Campos Clinical Indication: possible cholelithiasis; left sided abdominal pain Comparison: 07/08/2019 CT abdomen pelvis Technique: Real-time ultrasonography was obtained over the abdominal viscera and veterans contact representative images were recorded. Findings: The liver is normal in size and contour. There is normal echogenicity throughout the liver. 1.3 cm cyst in the right hepatic lobe. There is no intrahepatic ductal dilatation. The gallbladder is normal in size and appearance. There are no gallstones. Patient reports tenderness over the gallbladder. There is no gallbladder wall thickening or pericholecystic fluid. There is a 4mm mural-based echogenic focus within the gallbladder which may represent a polyp. The extrahepatic common duct is normal in size measuring 4 mm. The spleen is normal in size and contour. There is normal internal echogenicity of the spleen. There are no splenic masses. The visualized portions of the pancreas are normal. The aorta has a normal appearance. The right kidney measures 9.3 cm in bipolar length. Normal echogenicity. There are no masses, calculi, or hydronephrosis. There is a 1.6 cm cyst in the lower pole. The left kidney measures 10.8 cm in bipolar. Normal echogenicity. There are no masses, calculi, or hydronephrosis. There is a 2.2 cm cyst in the lower pole. There is no ascites. Impression: 1. Hepatic cyst. 2. 4 mm gallbladder polyp. 3. Patient reports tenderness over the gallbladder. No gallstones or additional sonographic findings to suggest acute cholecystitis. 4. Bilateral renal cysts. Electronically signed by: Jm Schmitt MD 07/09/2019 9:36 AM CDT
--- NOTE | 2019-07-09 14:02 | DS ---
SUPERVISING PHYSICIAN: Nick Mg MD DISCHARGE DIAGNOSIS: 1. Epigastric abdominal pain that radiated somewhat to the right as well as left upper quadrants with nausea, vomiting and dehydration. She had mild leukocytosis on admission and there was some concern for cholelithiasis per CT scan. 2. Diverticulosis with a history of diverticulitis treated in the hospital in December of 2018. 3. Rheumatoid arthritis currently on medications. 4. Hypertension on medications, stable. HISTORY OF PRESENT ILLNESS: This is a 74-year-old female patient who has a history of rheumatoid arthritis. She felt like she was having a flare-up of her rheumatoid arthritis over the last few weeks and had gone to see her coal deliverer, Dr. Bree Scott, on the day prior to admission. She woke up on the morning of admission with left upper quadrant abdominal pain that radiated to her epigastric area. She had some nausea and dry heaving, but no diarrhea at that time. She had an appointment with her primary care physician, Dr. Siva Mg, the same morning for her routine yearly checkup. She had been NPO. She went to the office and had her lab drawn. When she went back for her appointment, she was feeling very nauseated and weak with vomiting. She also had some diarrhea, dizziness and lightheadedness. Lab work in Dr. Mg's office showed WBC of 12,000. The remainder of her lab work was unremarkable other than her BUN was elevated. She has a history of diverticulitis and was actually in the hospital in December of this year. Because of her extreme weakness as well as her history of rheumatoid arthritis and diverticulitis, she was a direct admit to the hospital for rehydration and further evaluation. HOSPITAL COURSE: The patient was placed in observation in the hospital. Her initial vital signs showed temperature 98.4, heart rate 84, blood pressure 116/72, respiratory rate 12, O2 saturation 97% on room air. Blood cultures were drawn. Additional lab studies done showed an amylase of 59, lipase 30, TSH 3.83. CT of the abdomen was done and showed some diverticulosis without acute diverticulitis and some concerns for cholelithiasis. She was placed on bowel rest and given some IV fluids. An abdominal sonogram was also ordered as well as followup labs. She was started on Flagyl and Levaquin IV. Antiemetics were given as well as pain medication. She received a proton pump inhibitor for ulcer prophylaxis as well as Lovenox for DVT prophylaxis. This morning, her lab work was fairly unremarkable. Her followup amylase and lipase were also within normal limits. Sonogram was completed without any acute issues. Her diet was advanced and she tolerated it without problems. She will be discharged home today in stable condition. LABORATORY: Followup WBCs 6.2 with hemoglobin 12.2, hematocrit 35.9. She had a normal differential. Electrolytes were basically within normal limits. Amylase was 43, lipase 26. Preliminary blood cultures showed no growth after 24 hours. Abdominal sonogram shows 1) Hepatic cyst. 2) 4 mm gallbladder polyp. 3) The patient reports tenderness over the gallbladder, no gallstones or additional sonographic findings to suggest acute cholecystitis. 4) Bilateral renal cysts. Her CT of the abdomen and pelvis are as per the history of present illness. DISCHARGE PLAN: The patient will be discharged home in stable condition . She is to advance her diet as tolerated and to keep it as bland as possible as long as her GI are prevalent. She is to increase her activity as tolerated. In addition to her home medications, she has also been given 10 days of Levaquin as well as 10 days of metronidazole. She has a followup appointment with Dr. Mg on 07/13/19 at 8:45 AM. At that time, her sonogram can be reviewed as well as her blood cultures. She is to return to the hospital or followup with Dr. Mg's office for any problems or complications. DISCHARGE MEDICATIONS: 1. Enalapril. 2. Celebrex. 3. Sertraline. 4. Gabapentin. 5. Simponi Aria. 6. Tizanidine. 7. Hydrochlorothiazide. 8. Levaquin. 9. Metronidazole. #[id number] MTDD
== END 2019-07-09 13:16 | disposition home or self-care (01) ==
LOC: GMAE 12:17 → MS 15:40 → INTOOBSV 15:40
PROVIDERS: ADMIT Nurse Practitioner Acute Care; ATTEND Nurse Practitioner Acute Care
DX: R10.13 Epigastric pain (principal); R10.11 Right upper quadrant pain; R10.12 Left upper quadrant pain; E86.0 Dehydration; D72.829 Elevated white blood cell count, unspecified; K57.30 Diverticulosis of large intestine without perforation or abscess without bleeding; M06.9 Rheumatoid arthritis, unspecified; I10 Essential (primary) hypertension; R53.1 Weakness; M19.90 Unspecified osteoarthritis, unspecified site; J45.909 Unspecified asthma, uncomplicated; K76.89 Other specified diseases of liver; K82.4 Cholesterolosis of gallbladder; N28.1 Cyst of kidney, acquired; Z79.899 Other long term (current) drug therapy; Z88.0 Allergy status to penicillin; Z88.8 Allergy status to other drugs, medicaments and biological substances; Z87.442 Personal history of urinary calculi; Z82.49 Family history of ischemic heart disease and other diseases of the circulatory system; Z80.3 Family history of malignant neoplasm of breast
CPT/HCPCS: 96366; 96365; 96375 ×2; 96376; 96372; J3010 ×2; J1956; J3490 ×3; J2405; J7030; J1650; 80053; 36415 ×4; 82150 ×2; 85025; 87040 ×2; 83690 ×2; 84443; 74176; 76700; 94760 ×2; G0378

== ENCOUNTER → 2020-03-16 | Outpatient (CLI) | payer MEDICARE, OTHER | LOC: GMAE 14:23 | PROVIDERS: ATTEND Family Medicine | DX: M06.9 Rheumatoid arthritis, unspecified (principal) ==

== ENCOUNTER → 2020-06-15 | Outpatient (CLI) | payer MEDICARE, OTHER | LOC: LAB.O 12:20 | PROVIDERS: ATTEND Internal Medicine | DX: M06.9 Rheumatoid arthritis, unspecified (principal) ==

== ENCOUNTER → 2020-07-19 | Outpatient (CLI) | payer MEDICARE, OTHER ==
--- NOTE | 2020-07-22 15:43 | MAM ---
EXAM DESCRIPTION: 3D Screening BILATERAL : Digital Mammography. CLINICAL HISTORY: 75 years Female ANNUAL SCREENING . No complaints. Sister with breast cancer unknown age. Menarche age 13. Childbirth age 19. Menopause age 51. HRT 5 or more years ago. Bilateral benign breast biopsies. Lifetime risk of developing breast cancer (Tyrer-Cuzick model)(%): 7.5. COMPARISON: Bilateral screening 2-D digital mammography May 2015. TECHNIQUE: Bilateral CC and MLO projection full-field images, digital tomosynthesis mammographic technique. Bilateral digital 2-D full-field MLO images. CAD available for 2-D images. FINDINGS: The breast parenchymal density pattern is: Almost entirely fatty. No skin thickening or nipple retraction. Bilateral solitary microcalcifications. Skin mole markers. Vascular calcifications. Groups of benign type calcifications. Calcifications have increased since the prior study. No new focal, stellate mass or density, focal asymmetry , and no suspicious microcalcifications bilaterally. Stable mammograms compared to prior study. Taking into account, differences in mammographic technique. IMPRESSION: Benign exam. BIRAD CATEGORY: 2 BENIGN FINDINGS. RECOMMENDATIONS: FOLLOW UP: Routine digital bilateral mammographic screening, one year interval from July 2020. Written communication explaining the IMPRESSION and follow-up, will be mailed to the patient and referring health care provider According to the [employer], yearly mammograms are recommended starting at age 40 and continuing as long as a woman is in good health. Any breast change noted on a breast self-exam should be reported promptly to the patient's healthcare provider. Breast MRI is recommended for women with an approximately 20-25% or greater lifetime risk of breast cancer, including women with a strong family history of breast or ovarian cancer and women who have been treated for Hodgkin's disease. A negative mammographic report should not delay tissue diagnosis in patients with significant clinical history or physical findings. Extremely dense breast tissue limits the sensitivity of digital mammography. Electronically signed by: Raimundo Martinez MD 07/22/2020 3:42 PM CDT
== END ==
LOC: MAMMO 10:30
PROVIDERS: ATTEND Family Medicine
DX: Z12.31 Encounter for screening mammogram for malignant neoplasm of breast (principal)

== ENCOUNTER → 2020-09-06 | Outpatient (CLI) | payer MEDICARE, OTHER | LOC: GMAE 10:33 | PROVIDERS: ATTEND Family Medicine | DX: I10 Essential (primary) hypertension (principal); R94.6 Abnormal results of thyroid function studies; M10.9 Gout, unspecified; E78.2 Mixed hyperlipidemia ==